=== PATIENT | female | born 1985 | race Two or more races ===

== ENCOUNTER 2016-09-20 09:31 | Emergency (ER) | payer MEDICARE, MEDICAID ==
[~2016-09-20] VITALS: Ht 160 cm; Wt 73.9 kg
[2016-09-20 11:14] VITALS: BP 92/63
[2016-09-20 12:09] VITALS: BP 94/56
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
--- NOTE | 2016-09-22 13:47 | Diagnostic Imaging Report ---
Indication:Third trimester . Pelvic pain Technique: Grayscale and duplex Doppler imaging of the pelvis performed utilizing a transabdominal scan and endovaginal scan. Comparison: None Findings: Examination shows a single viable intrauterine 24 weeks 5 days. This corresponds to the clinical age based on last menstrual period of 04/03/16. measurements are as follows biparietal diameter 59.4 mm, 24 weeks 2 days Head circumference 224.5 mm, 24 weeks 3 days Abdominal circumference 200.2 mm, 24 weeks 5 days. Femur length 46.5 mm, 25 weeks 3 days. Estimated weight 749 g. Amniotic fluid volume appears appropriate. No anatomic abnormalities are seen. Intracranial contents appear normal. Four-chamber heart attempted but not seen well. Three-vessel cord and insertion site noted. No gross abnormalities of the spine identified. Posterior placenta noted. No placenta previa identified. The cervix is about 4.3 CM in length and is closed. bladder noted. Kidneys not well demonstrated. Stomach not well demonstrated. Impression: Single living intrauterine 24 weeks 5 days gestational age based on sonographic criteria. This corresponds to the clinical age. Incomplete anatomic survey. Consider followup level II ultrasound. Note: A negative ultrasound evaluation does not insure well-being or positive outcome for the . monitoring including a nonstress test may be needed and clinical evaluation by CONCRETE GRINDER OPERATOR is highly recommended.
== END 2016-09-20 12:11 | disposition home or self-care (01) ==
LOC: EMR 10:04
DX: O26.892 Other specified pregnancy related conditions, second trimester (principal); R10.9 Unspecified abdominal pain; Z04.1 Encounter for examination and observation following transport accident; V43.52XA Car driver injured in collision with other type car in traffic accident, initial encounter; Y92.410 Unspecified street and highway as the place of occurrence of the external cause; Y99.8 Other external cause status
CPT/HCPCS: 76805; 99282